=== PATIENT | male | born 1960 | race Hispanic/Latino ===

== ENCOUNTER 2023-12-19 14:36 | Emergency (ER) | payer OTHER, BC ==
[~2023-12-19] VITALS: Ht 167.6 cm; Wt 77.1 kg
[2023-12-19 14:37] VITALS: BP 167/90; PULSE 70; RESP 16
[2023-12-19] MEDS: IBUPROFEN 600 MG TABLET PO ONE (16:55)
[2023-12-19] MEDS ORDERED: IBUP-2070 PO (16:55)
== END 2023-12-19 17:22 | disposition home or self-care (01) ==
LOC: EDH 14:36
DX: S90.121A Contusion of right lesser toe(s) without damage to nail, initial encounter (principal); I10 Essential (primary) hypertension; E11.9 Type 2 diabetes mellitus without complications; Z79.899 Other long term (current) drug therapy; Y03.0XXA Assault by being hit or run over by motor vehicle, initial encounter; Y93.89 Activity, other specified; Y92.89 Other specified places as the place of occurrence of the external cause; Y99.8 Other external cause status
CPT/HCPCS: 73630